=== PATIENT | male | born 1990 | race Caucasian/White ===

== ENCOUNTER 2018-01-07 22:56 | Emergency (ER) | payer SELFPAY ==
[2018-01-07] MEDS ORDERED: Ondansetron 4 MG/2 ML SDV IVPUSH ONE (23:14)
[2018-01-07] MEDS ORDERED: HYDROmorphone 0.5 MG/0.5 ML SYRINGE IVPUSH STA (23:14)
[2018-01-07] MEDS ORDERED: Sodium Chloride 0.9% 1,000 ML IV SCH (23:15)
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
[2018-01-08] MEDS ORDERED: Cephalexin 500 MG Cap PO ONE (00:45)
--- NOTE | 2018-01-08 07:25 | CR ---
Right ankle: Four views of the right ankle were obtained. Comparison: No previous study. Soft tissue swelling is identified. No acute fracture, dislocation or other bony abnormality is seen. Ankle mortise slightly asymmetric in height compatible with ligamentous injury. Impression: 1. Soft tissue swelling and slight asymmetry of height of the ankle mortise. 2. No acute bony abnormality is identified. Diagnostic code #2
== END 2018-01-08 01:08 | disposition home or self-care (01) ==
LOC: JD.ED 22:56
DX: S93.401A Sprain of unspecified ligament of right ankle, initial encounter (principal); S50.812A Abrasion of left forearm, initial encounter; S30.811A Abrasion of abdominal wall, initial encounter; S80.212A Abrasion, left knee, initial encounter; S50.311A Abrasion of right elbow, initial encounter; F17.210 Nicotine dependence, cigarettes, uncomplicated; F15.10 Other stimulant abuse, uncomplicated; V29.9XXA Motorcycle rider (driver) (passenger) injured in unspecified traffic accident, initial encounter
CPT/HCPCS: 29515; 73610; 96361; 96374; 96375; 99284; A9270; J1170; J2405; J7040

== ENCOUNTER 2024-09-20 17:52 | Emergency (ER) | payer BC, MEDICAID | END 2024-09-20 19:05 | disposition home or self-care (01) | LOC: JD.ED 17:52 | DX: Z48.811 Encounter for surgical aftercare following surgery on the nervous system (principal); Z79.899 Other long term (current) drug therapy | CPT/HCPCS: 99282 ==